=== PATIENT | female | born 1995 | race Two or more races ===

== ENCOUNTER 2021-07-19 15:19 | Emergency (ER) | payer OTHER, BC ==
[2021-07-19] MEDS ORDERED: TETANUS AND DIPHTHERIA TOXOID 0.5 ML DISP.SYRIN IM ONE (15:22)
[2021-07-19 15:31] VITALS: BP 107/72; PULSE 104; TEMP 98.4; BMI 20.1
[2021-07-19] MEDS ORDERED: DIPHTH,PERTUSS(ACELL),TET 0.5 ML DISP.SYRIN IM ONE ×2 (15:34→15:48)
[2021-07-19 17:01] LABS: SYPHILIS W/ RPR CONF NON-REACTIVE (NONREACTIVE)
[2021-07-19 17:30] LABS: HIV INTERPRETATION NEGATIVE (NEGATIVE)
== END 2021-07-19 17:13 | disposition home or self-care (01) ==
LOC: JERFT 15:19 → JER 15:19 → JERFT 17:13
PROC: 3E0234Z Introduction of Serum, Toxoid and Vaccine into Muscle, Percutaneous Approach (ICD-10-PCS; principal; 2021-07-19)
DX: S61.231A Puncture wound without foreign body of left index finger without damage to nail, initial encounter (principal); W26.0XXA Contact with knife, initial encounter
CPT/HCPCS: 36415; 86704; 86780; 86803; 87340; 87389; 87517; 90715; 99283-25

== ENCOUNTER 2021-11-09 19:06 | Emergency (ER) | payer BC, OTHER ==
[2021-11-09 19:22] VITALS: BP 110/69; PULSE 88; TEMP 97; BMI 20.9
[2021-11-09] MEDS ORDERED: IBUPROFEN 600 MG TABLET (FP) PO ONE ×2 (19:44→20:22)
== END 2021-11-09 21:22 ==
LOC: JER 19:06
DX: M79.641 Pain in right hand (principal); V00.121A Fall from non-in-line roller-skates, initial encounter
CPT/HCPCS: 73110-TC-RT-FY; 73130-TC-RT-FY; 99283-25

== ENCOUNTER 2023-03-12 18:11 | Emergency (ER) | payer OTHER, BC ==
[2023-03-12 18:20] VITALS: BP 116/72; PULSE 68; RESP 18; TEMP 98; BMI 20.1
[2023-03-12 20:28] LABS: HIV INTERPRETATION NEGATIVE (NEGATIVE)
== END 2023-03-12 19:19 | disposition home or self-care (01) ==
LOC: JER 18:11
DX: S61.431A Puncture wound without foreign body of right hand, initial encounter (principal); W46.1XXA Contact with contaminated hypodermic needle, initial encounter; Y99.0 Civilian activity done for income or pay
CPT/HCPCS: 36415; 86704; 86803; 87340; 87389; 87517; 99283-25